=== PATIENT | female | born 1970 | race Two or more races ===

== ENCOUNTER 2025-02-27 13:07 | Emergency (ER) | payer OTHER ==
[~2025-02-27] VITALS: Ht 157.5 cm; Wt 91.4 kg
[2025-02-27 13:36] VITALS: BP 193/102; PULSE 97; RESP 18; TEMP 98.3; O2SAT 99
--- NOTE | 2025-02-27 14:41 | ED.PDOC ---
History of Present Illness HPI Comments 54 y.o female evaluation of medical clearance. Patient's family member who lives in the same household tested positive for active tuberculosis yesterday and is here for clearance. Patient complains of a cough, nausea and vomiting x 1-2 days. Patient is hypertensive upon ED arrival with BP of 193/102. No chest pain, SOB, fever, chills, nausea, vomiting. Chief Complaint: Cough Time Seen by MD: 14:00 Reviewed Notes: Nurses Notes, Medications, Allergies Allergies: Coded Allergies: Levofloxacin (Verified Allergy, Unknown, 02/27/25) Information Source: Patient Mode of Arrival: Ambulatory Timing: Days Duration: Since onset Past Medical History PAST MEDICAL HISTORY: DM, HTN Surgical History: Denies all surgeries CHILD CARE COUNSELOR History: No Pertinent CHILD CARE COUNSELOR History Family History Family History: Reviewed,noncontributory to illness Social History Smoker: Non-Smoker Alcohol: Denies ETOH Use Drugs: Denies Drug Use Lives In: Home Constitutional: denies: chills, diaphoresis, fatigue, fever, malaise, sweats, weakness, others EENTM: denies: blurred vision, double vision, ear bleeding, ear discharge, ear drainage, ear pain, ear ringing, eye pain, eye redness, hearing loss, mouth pain, mouth swelling, nasal discharge, nose bleeding, nose congestion, nose pain, photophobia, tearing, throat pain, throat swelling, voice changes, others Respiratory: reports: cough; denies: hemoptysis, orthopnea, SOB at rest, shortness of breath, SOB with excertion, stridor, wheezing, others Cardiovascular: denies: chest pain, dizzy spells, diaphoresis, Dyspnea on exertion, edema, irregular heart beat, left arm pain, lightheadedness, palpitations, PND, syncope, others Gastrointestinal: reports: nausea, vomiting; denies: abdomen distended, abdominal pain, blood streaked bowels, constipated, diarrhea, dysphagia, difficulty swallowing, hematemesis, melena, poor appetite, poor fluid intake, rectal bleeding, rectal pain, others Genitourinary: denies: abnormal vagina bleeding, burning, dyspareunia, dysuria, flank pain, frequency, hematuria, incontinence, pain, , vagina discharge, urgency, others Neurological: denies: dizziness, fainting, headache, left sided numbness, left sided weakness, numbness, paresthesia, pre-existing deficit, right sided numbness, right sided weakness, seizure, speech problems, tingling, tremors, weakness, others Musculoskeletal: denies: back pain, gout, joint pain, joint swelling, muscle pain, muscle stiffness, neck pain, others Integumetry: denies: bruises, change in color, change in hair/nails, dryness, laceration, lesions, lumps, rash, wounds, others Allergic/Immunocompromised: denies: Difficulty Healing, Frequent Infections, Hives, Itching, others Hematologic/Lymphatic: denies: anemia, blood clots, easy bleeding, easy bruising, swollen glands, others Endocrine: denies: excessive hunger, excessive sweating, excessive thirst, excessive urination, flushing, intolerance to cold, intolerance to heat, unexplained weight gain, unexplained weight loss, others Psychiatric: denies: anxiety, bipolar disorder, depression, hopeless, panic disorder, schizophrenia, sleepless, suicidal, others All Other Systems: Reviewed and Negative Physical Exam General Appearance: No Apparent Distress, Normal HEENT: Normal ENT Inspection, Pharynx Normal, TMs Normal Neck: Full Range of Motion, Non-Tender, Normal, Normal Inspection Respiratory: Chest Non-Tender, Lungs Clear, No Accessory Muscle Use, No Respiratory Distress, Normal Breath Sounds Cardiovascular: No Edema, No JVD, No Murmur, No Gallop, Normal Peripheral Pulses, Regular Rate/Rhythm Breast Exam: Deferred Gastrointestinal: No Organomegaly, Non Tender, No Pulsatile Mass, Normal Bowel Sounds, Soft Genitalia: Deferred Pelvic: Deferred Rectal: Deferred Extremities: No calf tenderness, Normal capillary refill, Normal inspection, Normal range of motion, Non-tender, No pedal edema Musculoskeletal : Apperance: Normal Neurologic: Alert, professor of chemistry II-XII nml as Tested, No Motor Deficits, Normal Affect, Normal Mood, No Sensory Deficits Cerebellar Function: Normal Reflexes: Normal Skin: Dry, Normal Color, Warm Lymphatic: No Adenopathy Was a procedure done? Was a procedure done?: No Differential Dx Considerations may include: Bacterial pneumonia, Pulmonary abscess, Pneumonoconiosis, Other atypical,mycobacterial infections: Infections from other Mycobacterium species, X-Ray, Labs, Meds, VS Vital Signs Date Time Temp Pulse Resp B/P (MAP) Pulse Ox O2 Delivery O2 Flow Rate FiO2 02/27/25 13:36 98.3 97 18 193/102 99 98.3 Lab Test 02/27/25 14:25 Range/Units White Blood Count 9.1 4.4-10.8 10^3/uL Red Blood Count 3.01 L 4.0-5.20 10^6/uL Hemoglobin 9.2 L 12.2-16.2 g/dL Hematocrit 27.9 L 36.0-46.0 % Mean Corpuscular Volume 92.6 80.0-100.0 fL Mean Corpuscular Hemoglobin 30.5 28.0-32.0 pg Mean Corpuscular Hemoglobin Concent 33.0 32.0-36.0 g/dL Red Cell Distribution Width 13.9 11.8-14.3 % Platelet Count 272 140-450 10^3/uL Mean Platelet Volume 8.5 6.9-10.8 fL Neutrophils (%) (Auto) 76.5 37.0-80.0 % Lymphocytes (%) (Auto) 14.1 10.0-50.0 % Monocytes (%) (Auto) 5.1 0.0-12.0 % Eosinophils (%) (Auto) 3.6 0.0-7.0 % Basophils (%) (Auto) 0.7 0.0-2.0 % Neutrophils # (Auto) 7.0 1.6-8.6 10 ^3/uL Lymphocytes # (Auto) 1.3 0.4-5.4 10 ^3/uL Monocytes # (Auto) 0.5 0-1.3 10 ^3/uL Eosinophils # (Auto) 0.3 0-0.8 10 ^3/uL Basophils # (Auto) 0.1 0-0.2 10 ^3/uL Nucleated Red Blood Cells 0.1 % Sodium Level 139 136-145 mmol/L Potassium Level 4.5 3.5-5.1 mmol/L Chloride Level 107 98-107 mmol/L Carbon Dioxide Level 19 L 20-31 mmol/L Anion Gap 13 5-15 Blood Urea Nitrogen 52 H 9-23 mg/dL Creatinine 4.48 H 0.550-1.02 mg/dL Glomerular Filtration Rate Calc 11 >90 mL/min BUN/Creatinine Ratio 11.6 10.0-20.0 Serum Glucose 252 H 74-106 mg/dL Calcium Level 8.7 8.7-10.4 mg/dL Troponin I High Sensitivity 27 </=34 ng/L TB Test (QFT) Gold Plus Pending TB Test (QFT) Nil Pending TB Test (QFT) Mitogen Pending TB Test (QFT) Antigen 1 Pending TB Test (QFT) Antigen 2 Pending TB Test (QFT) Criteria Pending Time of 1ST Reevaluation: 14:37 Reevaluation 1ST: Unchanged Patient Education/Counseling: Diagnosis, Treatment, Prognosis Family Education/Counseling: Diagnosis, Treatment SEPSIS Sepsis Screen Date sepsis recognized/suspect: Feb 27, 2025 Time Sepsis recognized/suspect: 1335 Recent Procedure: No On Antibiotic Therapy: No Respiratory Rate >20: No Heart Rate >90: Yes Temp<36 C (96.8 F) or >38.3 C: No SBP <90 or MAP <65 mmHG: No New Acute Mental Status Change: No Is the patient on CPAP, BIPAP,: No Physician Orders Quantiferon-Tb Gold (02/27/25 14:12) Urinalysis (02/27/25 14:12) Chest Portable (02/27/25 14:12) Electrocardigram (02/27/25 14:12) Electrocardigram (02/27/25 15:12) Electrocardigram (02/27/25 17:12) Vital Signs Date Time Temp Pulse Resp B/P (MAP) Pulse Ox O2 Delivery O2 Flow Rate FiO2 02/27/25 13:36 98.3 97 18 193/102 99 98.3 Laboratory Tests Test 02/27/25 14:25 White Blood Count 9.1 10^3/uL (4.4-10.8) Departure 1 Departure Time of Disposition: 17:36 (Patient with a TB exposure. TB test was sent. Patient also with a acute renal. Patient reports she is unable to state has not want we will care for the kids and she has a long. Patient will sign out AMA. Patient's take lisinopril but does not follow up with anyone. We will discharge patient home with a prescription for lisinopril) Impression: Primary Impression: Exposure to TB Additional Impressions: SERENA (acute kidney injury) Azotemia Generalized weakness Disposition: LEFT AGAINST MEDICAL ADVICE Condition: Serious Critical Care Note Critical Care Time?: No Stability Stability form required: No I personally scribed for VONNIE CALLE MD ([email or web address]) on 02/27/25 at 14:41. Electronically submitted by Macarena Mejía ([facility]). VONNIE CALLE MD Feb 27, 2025 14:41
--- NOTE | 2025-02-27 14:54 | DVH ---
CHEST RADIOGRAPH Indication: cough Technique: Single frontal view of the chest was obtained Comparison: None FINDINGS: Lines and Tubes: None Lungs: No focal consolidation. Mild pulmonary edema. Pleura: No effusion. No pneumothorax. Cardiomediastinal contours: Mild cardiomegaly Bones: No acute osseous abnormality. IMPRESSION: 1. Mild cardiomegaly and mild pulmonary edema. No focal consolidations.
[2025-02-27 15:43] LABS: Hematocrit 27.9 % (36.0-46.0); Hemoglobin 9.2 g/dL (12.2-16.2); Mean Corpuscular Hemoglobin 30.5 pg (28.0-32.0); Mean Corpuscular Volume 92.6 fL (80.0-100.0); Nucleated Red Blood Cells % 0.1 %
[2025-02-27 15:53] LABS: Potassium 4.5 mmol/L (3.5-5.1); Sodium 139 mmol/L (136-145)
[2025-02-27 15:55] LABS: Anion Gap 13 (5-15); Calcium 8.7 mg/dL (8.7-10.4)
[2025-02-27 16:00] LABS: BUN/Creatinine Ratio 11.6 (10.0-20.0)
[2025-02-27 16:03] LABS: Blood Urea Nitrogen 52 mg/dL (9-23); Carbon Dioxide 19 mmol/L (20-31); Chloride 107 mmol/L (98-107); Glucose 252 mg/dL (74-106)
== END 2025-02-27 17:40 | disposition left against medical advice (07) ==
LOC: ER 13:07
DX: N17.9 Acute kidney failure, unspecified (principal); E11.9 Type 2 diabetes mellitus without complications; R79.89 Other specified abnormal findings of blood chemistry; R53.1 Weakness; Z20.1 Contact with and (suspected) exposure to tuberculosis; Z88.1 Allergy status to other antibiotic agents; Z79.899 Other long term (current) drug therapy
CPT/HCPCS: 36415; 71045; 80048; 84484; 85025